=== PATIENT | female | born 1995 | race Caucasian/White ===

== ENCOUNTER 2017-03-20 21:17 | Emergency (ER) | payer MEDICAID ==
[~2017-03-20 21:17] MED LIST: AUG500 PO; KEFLEX500 MG PO; LAC PO; PROVENTIL0.09 MG/A1 INH; TYLENOL EXTRA500 M2 PO
[2017-03-20 21:26] VITALS: BP 122/90
== END 2017-03-20 23:19 | disposition left against medical advice (07) ==
LOC: ED 21:17
DX: Z53.21 Procedure and treatment not carried out due to patient leaving prior to being seen by health care provider (principal)

== ENCOUNTER 2018-01-17 10:13 | Emergency (ER) | payer MEDICAID ==
[~2018-01-17] VITALS: Ht 167.6 cm; Wt 66.7 kg
[2018-01-17 10:19] VITALS: Ht 167.6 cm; Wt 66.7 kg
[2018-01-17 10:47] LABS: BASOPHIL % 0.1 % (0-2); PLATELET COUNT 265 x10^3mcL (130-400); RED CELL DISTRIBUTION WIDTH 13.4 % (11.5-14.5)
[2018-01-17 11:44] LABS: CALCIUM 9.8 mg/dL (8.5-10.1); CARBON DIOXIDE 27.9 mmol/L (21-32); CHLORIDE SERUM 101 mmol/L (98-107); CREATININE SERUM 0.7 mg/dL (0.6-1.0); GFR1 > 60 mL/min; GLUCOSE SERUM 110 mg/dL (74-106); POTASSIUM SERUM 4.1 mmol/L (3.5-5.1); SODIUM SERUM 137 mmol/L (136-145)
[2018-01-17 11:49] LABS: ALBUMIN 4.3 g/dL (3.4-5.0); ALKALINE PHOSPHATASE 72 U/L (46-116); ALT/SGPT 18 U/L (14-59); AMYLASE 53 U/L (25-115); AST/SGOT 14 U/L (15-37); BILIRUBIN TOTAL 0.39 mg/dL (0.20-1.00); LIPASE 138 IU/L (73-393); TOTAL PROTEIN, SERUM 8.3 g/dL (6.4-8.2)
[2018-01-17 13:09] VITALS: BP 103/71
== END 2018-01-17 13:14 | disposition home or self-care (01) ==
LOC: ED 10:13
PROVIDERS: Emergency Medicine
DX: R10.9 Unspecified abdominal pain (principal); R11.10 Vomiting, unspecified; R19.7 Diarrhea, unspecified; E86.0 Dehydration
CPT/HCPCS: 83880; 87046; 87046-59; J2405; J7030

== ENCOUNTER 2018-12-03 16:51 | Emergency (ER) | payer OTHER ==
[~2018-12-03] VITALS: Ht 167.6 cm; Wt 69.9 kg
[2018-12-03 16:54] VITALS: Ht 167.6 cm; Wt 69.9 kg
[2018-12-03 18:21] LABS: BASOPHIL % 0.4 % (0-2); PLATELET COUNT 251 x10^3mcL (130-400); RED CELL DISTRIBUTION WIDTH 11.9 % (11.5-14.5)
[2018-12-03 18:32] LABS: CALCIUM 9.3 mg/dL (8.5-10.1); CHLORIDE SERUM 104 mmol/L (98-107); CREATININE SERUM 0.8 mg/dL (0.6-1.0); GFR1 > 60 mL/min; GLUCOSE SERUM 103 mg/dL (74-106); POTASSIUM SERUM 4.1 mmol/L (3.5-5.1); SODIUM SERUM 141 mmol/L (136-145)
[2018-12-03 18:37] LABS: ALKALINE PHOSPHATASE 65 U/L (46-116); ALT/SGPT 16 U/L (14-59); AST/SGOT 8 U/L (15-37); TOTAL PROTEIN, SERUM 7.3 g/dL (6.4-8.2)
[2018-12-03 18:54] LABS: AMPHETAMINE QUAL UR NONE DETECTED (See below)
[2018-12-03 20:24] VITALS: BP 108/70
== END 2018-12-03 20:25 | disposition home or self-care (01) ==
LOC: ED 16:51
PROVIDERS: Emergency Medicine
DX: R07.89 Other chest pain (principal); R06.02 Shortness of breath
CPT/HCPCS: 85378; J1885; Q0092

== ENCOUNTER 2018-12-24 10:09 | Emergency (ER) | payer MEDICAID ==
[~2018-12-24] VITALS: Ht 167.6 cm; Wt 69.4 kg
[2018-12-24 10:12] VITALS: Ht 167.6 cm; Wt 69.4 kg
[2018-12-24 12:06] VITALS: BP 117/78
== END 2018-12-24 12:06 | disposition home or self-care (01) ==
LOC: ED 10:09
DX: M54.5 Low back pain (principal); M62.830 Muscle spasm of back; Z87.01 Personal history of pneumonia (recurrent)

== ENCOUNTER 2018-12-26 20:11 | Emergency (ER) | payer OTHER ==
[~2018-12-26] VITALS: Ht 162.6 cm; Wt 68.9 kg
[2018-12-26 20:20] VITALS: Ht 162.6 cm; Wt 68.9 kg
[2018-12-26 22:55] LABS: BASOPHIL % 0.5 % (0-2); PLATELET COUNT 252 x10^3mcL (130-400)
[2018-12-26 23:11] LABS: CALCIUM 9.7 mg/dL (8.5-10.1); CARBON DIOXIDE 26.4 mmol/L (21-32); CHLORIDE SERUM 103 mmol/L (98-107); CREATININE SERUM 0.7 mg/dL (0.6-1.0); GFR1 > 60 mL/min; GLUCOSE SERUM 118 mg/dL (74-106); POTASSIUM SERUM 4.2 mmol/L (3.5-5.1); SODIUM SERUM 142 mmol/L (136-145)
[2018-12-26 23:15] LABS: ALBUMIN 4.3 g/dL (3.4-5.0); ALKALINE PHOSPHATASE 67 U/L (46-116); ALT/SGPT 18 U/L (14-59); AST/SGOT 14 U/L (15-37); BILIRUBIN TOTAL 0.41 mg/dL (0.20-1.00); LIPASE 295 IU/L (73-393); TOTAL PROTEIN, SERUM 8.2 g/dL (6.4-8.2)
[2018-12-26 23:23] LABS: C REACTIVE PROTEIN < 0.2 mg/dL (<=0.9)
[2018-12-26 23:35] VITALS: BP 123/68
== END 2018-12-26 23:35 | disposition home or self-care (01) ==
LOC: ED 20:11
PROVIDERS: Specialist
DX: R10.9 Unspecified abdominal pain (principal); R11.10 Vomiting, unspecified; M54.5 Low back pain
CPT/HCPCS: 36415; Q0162

== ENCOUNTER 2019-03-31 18:43 | Emergency (ER) | payer MEDICAID ==
[~2019-03-31] VITALS: Ht 167.6 cm; Wt 73.0 kg
[2019-03-31 18:48] VITALS: Ht 167.6 cm; Wt 73.0 kg
[2019-03-31 20:13] VITALS: BP 111/77
== END 2019-03-31 20:13 | disposition home or self-care (01) ==
LOC: ED 18:43
DX: B34.9 Viral infection, unspecified (principal); R03.0 Elevated blood-pressure reading, without diagnosis of hypertension

== ENCOUNTER 2019-06-13 18:39 | Emergency (ER) | payer MEDICAID ==
[~2019-06-13] VITALS: Ht 167.6 cm; Wt 74.6 kg
[2019-06-13 18:53] VITALS: BP 124/53; Ht 167.6 cm; Wt 74.6 kg
== END 2019-06-13 19:23 | disposition home or self-care (01) ==
LOC: ED 18:39
DX: J40 Bronchitis, not specified as acute or chronic (principal)

== ENCOUNTER 2019-09-01 09:20 | Emergency (ER) | payer OTHER ==
[~2019-09-01] VITALS: Ht 167.6 cm; Wt 73.0 kg
[2019-09-01 09:28] VITALS: Ht 167.6 cm; Wt 73.0 kg
[2019-09-01 11:20] VITALS: BP 128/75
== END 2019-09-01 11:21 | disposition home or self-care (01) ==
LOC: ED 09:20
DX: G43.909 Migraine, unspecified, not intractable, without status migrainosus (principal); R03.0 Elevated blood-pressure reading, without diagnosis of hypertension; M41.9 Scoliosis, unspecified
CPT/HCPCS: J0780; J1885